=== PATIENT | male | born 1945 | race Caucasian/White ===

== ENCOUNTER → 2016-07-05 | Outpatient (REF) | payer MEDICARE, OTHER ==
[~2016-07-05] MED LIST: ASPI81TAEC PO; CEFD300CAP PO; COLA100C PO; CYCL10TA PO; GABA300C3 PO; LEVE750XR PO; LISI-538 PO; MAPA325T2 PO; NICO7DIS4 TD; NIFE30TA7 PO; NORC7.5T PO; PRAV1TAB39 PO; PROTPAK PO; RISATAB3 PO; SENN-22 PO; TAMS0.4C2 PO; VITA-130 PO
[2016-07-05 17:13] LABS: MEAN CORPUSCULAR HEMOGLOBIN 28.6 pg (27.0-33.0); MEAN CORPUSCULAR HGB CONC 31.5 g/dl (32.0-36.5); MEAN CORPUSCULAR VOLUME 90.8 fl (80.0-96.0); RED CELL DISTRIBUTION WIDTH 21.2 % (11.5-14.5); WHITE BLOOD COUNT 7.1 K/mm3 (4.0-10.0)
[2016-07-05 17:44] LABS: PERCENT SATURATION 8.2 % (19.7-37.4)
== END ==
LOC: M SFHCCLAY 13:17
PROVIDERS: ATTEND Nurse Practitioner Family
DX: D64.9 Anemia, unspecified (principal)

== ENCOUNTER 2016-07-08 14:32 | Emergency (ER) | payer MEDICARE, OTHER ==
[2016-07-08] MEDS ORDERED: SILVER NITRATE APPLICATOR As Ordered ONE (16:03)
[2016-07-08 16:59] LABS: MEAN CORPUSCULAR HEMOGLOBIN 28.1 pg (27.0-33.0); MEAN CORPUSCULAR HGB CONC 31.9 g/dl (32.0-36.5); RED CELL DISTRIBUTION WIDTH 22.8 % (11.5-14.5); WHITE BLOOD COUNT 7.1 K/mm3 (4.0-10.0)
--- NOTE | 2016-07-08 17:48 | EDDOCDS ---
Nurse's Notes [facility] Name: Gibson Goodman Age: 71 yrs Sex: Male : 1945 Arrival Date: 07/08/2016 Time: 14:32 Bed 8 Private MD: Elisha Lowery M. Diagnosis: Epistaxis Presentation: 07/08 14:47 Presenting complaint: Patient states: went to [facility] last night for nose bleed. bcj was cauterized - still bleeding when he got home. continues to bleed today - only bleeding from left nares. denies injury to nose. no vomiting. does not feel blood running down back of throat at this time. Adult Sepsis Screening: The patient does not have new or worsening altered mentation. Patient's respiratory rate is less than 22. Systolic blood pressure is greater than 100. Patient has a qSOFA score of 0- Negative Sepsis Screen. Suicide/Homicide risk assessment- the patient denies having any suicidal and/or homicidal ideations and does not present with any other emotional, behavioral or mental health complaints. Status: Patient is not a servicenow administrator developer or dependent. Transition of care: patient was not received from another setting of care. Care prior to arrival: See EMS report. 14:47 Acuity: ELLIOTT Level 3 [facility] 14:47 Method Of Arrival: Ambulance [facility] Triage Assessment: 14:58 General: Appears in no apparent distress, comfortable, Behavior is cooperative. Pain: bcj Denies pain. EENT: Nares packing intact to left nares no bleeding. Historical: - Allergies: no known allergies; - Home Meds: 1. clonazepam 0.5 mg Oral tab 1 tab 2 times per day 2. lisinopril 10 mg oral tab 1 tab once daily 3. aspirin 81 mg Oral tab 1 tab once daily 4. Colace 100 mg oral cap 1 cap once daily 5. gabapentin 300 mg Oral cap 1 cap 3 times per day 6. nifedipine 60 mg Oral TbER 1 tab once daily 7. pantoprazole 40 mg oral TbEC 1 tab once daily 8. Bacid 1 billion-250 cell-mg oral tab daily 9. Flomax 0.4 mg Oral cp24 1 cap once daily 10. Keppra 750 mg Oral tab 4 tab nightly 11. Pravachol 80 mg Oral tab 1 tab once daily 12. azithromycin 250 mg Oral tab 1 tab once daily - PMHx: CAD; Hypercholesterolemia; Hypertension; - PSHx: Cholecystectomy; R. Inguinal Hernia repair; - Social history: Smoking status: Patient uses tobacco products, heavy tobacco smoker. No barriers to communication noted, The patient speaks fluent Maltese, Speaks appropriately for age. - Family history: Not pertinent. - : The pt / caregiver states he / she is not on anticoagulants. Home medication list is obtained from the patient. - Exposure Risk Screening:: None identified. Screenin:45 Screening information is obtained from the patient. Fall risk: No risks identified. jc4 Assistance ADL's: requires no assistance with activities of daily living. Abuse/DV Screen: The patient / caregiver reports he/she is: not in a situation that causes fear, pain or injury. Nutritional screening: No deficits noted. 17:46 Advance Directives: There is no active DNR order. home support is adequate. jc4 Assessment: 16:45 General: Appears in no apparent distress, comfortable, Behavior is cooperative. Pain: j Denies pain. EENT: Nares are clear. 17:44 General: Appears in no apparent distress, comfortable, Behavior is cooperative. jc4 Neurological: Level of Consciousness is awake, alert, Oriented to person, place, time. EENT: no active bleeding noted from nares. Respiratory: Airway is patent Respiratory effort is even, unlabored, Respiratory pattern is regular, symmetrical. Derm: Skin is pink, warm & dry. Vital Signs: 14:45 BP 104 / 74; Pulse 91; Resp 20; Temp 96.9(O); Pulse Ox 95% ; Pain 4/10; ls3 14:47 Weight 97 kg; ls3 17:45 BP 121 / 72; Pulse 104; Resp 18; Temp 97.3; Pulse Ox 95% on R/A; Pain 0/10; rn1 Vitals: 14:58 Log In Time N/A - ambulance arrival. [facility] ED Course: 14:33 Patient visited by Ernestina Jose, Cleaning Crew Member. lbd 14:33 Elisha Lowery is Private Physician. lbd 14:33 Patient moved to Waiting lbd 14:34 Yo Lee, RN is Primary Nurse. lbd 14:34 Patient moved to 8 lbd 14:38 [facility] jo4 14:38 Radha Hernandez MD is Attending Physician. jo4 14:50 Triage Initiated bcj 15:00 Patient visited by Yo Lee RN. bcj 15:41 Patient visited by Radha Hernandez MD. sd1 16:04 [facility] Payment Agreement was scanned into [employer] and attached to record. zo 16:25 Patient visited by Clark Arcos PCA. jlf 16:45 No apparent distress. Resting quietly. awaiting re-evaluation by ER physician. bcj 16:45 The patient / caregiver is instructed regarding the plan of care and ED course. bcj 16:46 Patient visited by Yo Lee RN. bcj 17:16 Patient visited by Clark Arcos PCA. jlf 17:16 Elisha Lowery is Referral Physician. jo4 17:46 No IV's were initiated during this patient's visit. No procedures done that require [facility] assistance. Order Results: Lab Order: CBC; SPEC'M 07/08/16 16:23 Test: WHITE BLOOD COUNT; Value: 7.1; Range: 4.0-10.0; Units: K/mm3; Status: F Test: RED BLOOD COUNT; Value: 4.69; Range: 4.30-6.10; Units: M/mm3; Status: F Test: HEMOGLOBIN; Value: 13.2; Range: 14.0-18.0; Abnormal: Below low normal; Units: g/dl; Status: F Test: HEMATOCRIT; Value: 41.3; Range: 42.0-52.0; Abnormal: Below low normal; Units: %; Status: F Test: MEAN CORPUSCULAR VOLUME; Value: 88.0; Range: 80.0-96.0; Units: fl; Status: F Test: MEAN CORPUSCULAR HEMOGLOBIN; Value: 28.1; Range: 27.0-33.0; Units: pg; Status: F Test: MEAN CORPUSCULAR HGB CONC; Value: 31.9; Range: 32.0-36.5; Abnormal: Below low normal; Units: g/dl; Status: F Test: RED CELL DISTRIBUTION WIDTH; Value: 22.8; Range: 11.5-14.5; Abnormal: Above high normal; Units: %; Status: F Test: PLATELET COUNT, AUTOMATED; Value: 232; Range: 150-450; Units: k/mm3; Status: F Outcome: 17:16 Discharge ordered by Provider. jo4 17:46 Discharge Assessment: Patient awake, alert and oriented x 3. No cognitive and/or jc4 functional deficits noted. Patient verbalized understanding of disposition instructions. patient administered narcotics - no. The following High Risk Discharge criteria are identified: None. Discharged to home via wheelchair, with friend. Condition: stable. Discharge instructions given to patient, Instructed on discharge instructions, follow up and referral plans. Demonstrated understanding of instructions, medications, Pt was receptive of discharge instructions/ teaching. Prescriptions given X 1, prescription called into [facility] per patient request. No special radiology studies were completed. Property :Personal belongings accompany Pt. 17:47 Patient left the ED. jc4 Signatures: Radha Hernandez MD MD sd1 Ernestina Jose, Cleaning Crew Member Unit lbd Yo Lee, RN RN Marcello Cordova Jennifer, RN RN jc4 Clark Arcos, COMPLIANCE AUDITOR COMPLIANCE AUDITOR zariaf Sina Villaseñor rn1 Idalia Mauro, COMPLIANCE AUDITOR COMPLIANCE AUDITOR ls3 Christina Wan, DO TORRES jo4 LEXX
--- NOTE | 2016-07-08 17:48 | EDDOCDS ---
Physician Documentation [facility] Name: Gibson Goodman Age: 71 yrs Sex: Male : 1945 Arrival Date: 07/08/2016 Time: 14:32 Bed 8 Private MD: Elisha Lowery M. Disposition: 07/08 17:24 I have independently interviewed and examined the patient, and I agree with the sd1 investigation, diagnosis and treatment plan as documented by the Resident. Disposition: 07/08/16 17:16 Discharged to Home/Self Care. Impression: Epistaxis. - Condition is Stable. - Discharge Instructions: Nosebleed. - Prescriptions for Neosporin (jing- iker-polym) 3.5mg-400 unit- 5,000 unit/gram Topical Ointment - apply to affected area 1 application by TOPICAL route 2 times per day; 15 gram. - Medication Reconciliation, Local Pharmacy Hours form. - Follow up: Elisha Lowery; When: 1 week; Reason: Recheck today's complaints. - Problem is new. - Symptoms have improved. - Notes: You were evaluated in the emergency department for a nosebleed. Your laboratory values were essentially within normal limits. Your nose was evaluated and a small area in the left nostril was cauterized with silver nitrate. The procedure appeared to be tolerated well. Please follow-up with Elisha Lowery in 1 week. Historical: - Allergies: no known allergies; - Home Meds: 1. clonazepam 0.5 mg Oral tab 1 tab 2 times per day 2. lisinopril 10 mg oral tab 1 tab once daily 3. aspirin 81 mg Oral tab 1 tab once daily 4. Colace 100 mg oral cap 1 cap once daily 5. gabapentin 300 mg Oral cap 1 cap 3 times per day 6. nifedipine 60 mg Oral TbER 1 tab once daily 7. pantoprazole 40 mg oral TbEC 1 tab once daily 8. Bacid 1 billion-250 cell-mg oral tab daily 9. Flomax 0.4 mg Oral cp24 1 cap once daily 10. Keppra 750 mg Oral tab 4 tab nightly 11. Pravachol 80 mg Oral tab 1 tab once daily 12. azithromycin 250 mg Oral tab 1 tab once daily - PMHx: CAD; Hypercholesterolemia; Hypertension; - PSHx: Cholecystectomy; R. Inguinal Hernia repair; - Social history: Smoking status: Patient uses tobacco products, heavy tobacco smoker. No barriers to communication noted, The patient speaks fluent Estonian, Speaks appropriately for age. - Family history: Not pertinent. - : The pt / caregiver states he / she is not on anticoagulants. Home medication list is obtained from the patient. - Exposure Risk Screening:: None identified. Vital Signs: 14:45 BP 104 / 74; Pulse 91; Resp 20; Temp 96.9(O); Pulse Ox 95% ; Pain 4/10; ls3 14:47 Weight 97 kg / 213.85 lbs; ls3 17:45 BP 121 / 72; Pulse 104; Resp 18; Temp 97.3; Pulse Ox 95% on R/A; Pain 0/10; rn1 MDM: 15:40 CBC Ordered. EDMS 16:04 Financial registration complete. zo 16:04 [facility] Payment Agreement was scanned into [employer] and attached to record. zo 17:02 CBC Reviewed. sd1 Signatures: Dispatcher [employer] EDDC Radha Hernandez MD MD sd1 Yo Lee, RN RN Marcello Cordova Jennifer, RADHA RN jc4 Christina Wan DO DO jo4 The chart was reviewed and I authenticate all verbal orders and agree with the evaluation and treatment provided.Attachments: 16:04 [facility] Payment Agreement zo MTDD
--- NOTE | 2016-07-10 18:48 | EDDOCDS ---
Physician Documentation [facility] Name: Gibson Goodman Age: 71 yrs Sex: Male : 1945 Arrival Date: 07/08/2016 Time: 14:32 Bed 8 Private MD: Elisha Lowery M. Disposition: 07/08 17:24 I have independently interviewed and examined the patient, and I agree with the sd1 investigation, diagnosis and treatment plan as documented by the Resident. Disposition: 07/08/16 17:16 Discharged to Home/Self Care. Impression: Epistaxis. - Condition is Stable. - Discharge Instructions: Nosebleed. - Prescriptions for Neosporin (jing- iker-polym) 3.5mg-400 unit- 5,000 unit/gram Topical Ointment - apply to affected area 1 application by TOPICAL route 2 times per day; 15 gram. - Medication Reconciliation, Local Pharmacy Hours form. - Follow up: Elisha Lowery; When: 1 week; Reason: Recheck today's complaints. - Problem is new. - Symptoms have improved. - Notes: You were evaluated in the emergency department for a nosebleed. Your laboratory values were essentially within normal limits. Your nose was evaluated and a small area in the left nostril was cauterized with silver nitrate. The procedure appeared to be tolerated well. Please follow-up with Elisha Lowery in 1 week. Historical: - Allergies: no known allergies; - Home Meds: 1. clonazepam 0.5 mg Oral tab 1 tab 2 times per day 2. lisinopril 10 mg oral tab 1 tab once daily 3. aspirin 81 mg Oral tab 1 tab once daily 4. Colace 100 mg oral cap 1 cap once daily 5. gabapentin 300 mg Oral cap 1 cap 3 times per day 6. nifedipine 60 mg Oral TbER 1 tab once daily 7. pantoprazole 40 mg oral TbEC 1 tab once daily 8. Bacid 1 billion-250 cell-mg oral tab daily 9. Flomax 0.4 mg Oral cp24 1 cap once daily 10. Keppra 750 mg Oral tab 4 tab nightly 11. Pravachol 80 mg Oral tab 1 tab once daily 12. azithromycin 250 mg Oral tab 1 tab once daily - PMHx: CAD; Hypercholesterolemia; Hypertension; - PSHx: Cholecystectomy; R. Inguinal Hernia repair; - Social history: Smoking status: Patient uses tobacco products, heavy tobacco smoker. No barriers to communication noted, The patient speaks fluent Lithuanian, Speaks appropriately for age. - Family history: Not pertinent. - : The pt / caregiver states he / she is not on anticoagulants. Home medication list is obtained from the patient. - Exposure Risk Screening:: None identified. Vital Signs: 14:45 BP 104 / 74; Pulse 91; Resp 20; Temp 96.9(O); Pulse Ox 95% ; Pain 4/10; ls3 14:47 Weight 97 kg / 213.85 lbs; ls3 17:45 BP 121 / 72; Pulse 104; Resp 18; Temp 97.3; Pulse Ox 95% on R/A; Pain 0/10; rn1 MDM: 15:40 CBC Ordered. EDMS 16:04 Financial registration complete. zo 16:04 [facility] Payment Agreement was scanned into [employer] and attached to record. zo 17:02 CBC Reviewed. sd1 07/09 08:34 T-Sheet-- Draft Copy was scanned into [employer] and attached to record. se 12:56 T-Sheet-- Draft Copy was scanned into [employer] and attached to record. gb Signatures: Dispatcher [employer] EDRadha Russ MD MD sd1 Yo Lee, RN RN Sheree Hernandez, Juan Reg Marcello Davis Jennifer, RN RN jc4 Christina Wan DO DO jo4 Hoffert, Sarah seh The chart was reviewed and I authenticate all verbal orders and agree with the evaluation and treatment provided.Attachments: 07/08 16:04 [facility] Payment Agreement zo 12:56 T-Sheet-- Draft Copy gb Chart Complete MTDD
--- NOTE | 2016-07-10 18:48 | EDDOCDS ---
Nurse's Notes [facility] Name: Gibson Goodman Age: 71 yrs Sex: Male : 1945 Arrival Date: 07/08/2016 Time: 14:32 Bed 8 Private MD: Elisha Lowery M. Diagnosis: Epistaxis Presentation: 07/08 14:47 Presenting complaint: Patient states: went to [facility] last night for nose bleed. bcj was cauterized - still bleeding when he got home. continues to bleed today - only bleeding from left nares. denies injury to nose. no vomiting. does not feel blood running down back of throat at this time. Adult Sepsis Screening: The patient does not have new or worsening altered mentation. Patient's respiratory rate is less than 22. Systolic blood pressure is greater than 100. Patient has a qSOFA score of 0- Negative Sepsis Screen. Suicide/Homicide risk assessment- the patient denies having any suicidal and/or homicidal ideations and does not present with any other emotional, behavioral or mental health complaints. Status: Patient is not a customer service advocate or dependent. Transition of care: patient was not received from another setting of care. Care prior to arrival: See EMS report. 14:47 Acuity: ELLIOTT Level 3 [facility] 14:47 Method Of Arrival: Ambulance [facility] Triage Assessment: 14:58 General: Appears in no apparent distress, comfortable, Behavior is cooperative. Pain: bcj Denies pain. EENT: Nares packing intact to left nares no bleeding. Historical: - Allergies: no known allergies; - Home Meds: 1. clonazepam 0.5 mg Oral tab 1 tab 2 times per day 2. lisinopril 10 mg oral tab 1 tab once daily 3. aspirin 81 mg Oral tab 1 tab once daily 4. Colace 100 mg oral cap 1 cap once daily 5. gabapentin 300 mg Oral cap 1 cap 3 times per day 6. nifedipine 60 mg Oral TbER 1 tab once daily 7. pantoprazole 40 mg oral TbEC 1 tab once daily 8. Bacid 1 billion-250 cell-mg oral tab daily 9. Flomax 0.4 mg Oral cp24 1 cap once daily 10. Keppra 750 mg Oral tab 4 tab nightly 11. Pravachol 80 mg Oral tab 1 tab once daily 12. azithromycin 250 mg Oral tab 1 tab once daily - PMHx: CAD; Hypercholesterolemia; Hypertension; - PSHx: Cholecystectomy; R. Inguinal Hernia repair; - Social history: Smoking status: Patient uses tobacco products, heavy tobacco smoker. No barriers to communication noted, The patient speaks fluent Nicaraguan, Speaks appropriately for age. - Family history: Not pertinent. - : The pt / caregiver states he / she is not on anticoagulants. Home medication list is obtained from the patient. - Exposure Risk Screening:: None identified. Screenin:45 Screening information is obtained from the patient. Fall risk: No risks identified. jc4 Assistance ADL's: requires no assistance with activities of daily living. Abuse/DV Screen: The patient / caregiver reports he/she is: not in a situation that causes fear, pain or injury. Nutritional screening: No deficits noted. 17:46 Advance Directives: There is no active DNR order. home support is adequate. jc4 Assessment: 16:45 General: Appears in no apparent distress, comfortable, Behavior is cooperative. Pain: j Denies pain. EENT: Nares are clear. 17:44 General: Appears in no apparent distress, comfortable, Behavior is cooperative. jc4 Neurological: Level of Consciousness is awake, alert, Oriented to person, place, time. EENT: no active bleeding noted from nares. Respiratory: Airway is patent Respiratory effort is even, unlabored, Respiratory pattern is regular, symmetrical. Derm: Skin is pink, warm & dry. Vital Signs: 14:45 BP 104 / 74; Pulse 91; Resp 20; Temp 96.9(O); Pulse Ox 95% ; Pain 4/10; ls3 14:47 Weight 97 kg; ls3 17:45 BP 121 / 72; Pulse 104; Resp 18; Temp 97.3; Pulse Ox 95% on R/A; Pain 0/10; rn1 Vitals: 14:58 Log In Time N/A - ambulance arrival. [facility] ED Course: 14:33 Patient visited by Ernestina Jose, Banking Attorney. lbd 14:33 Elisha Lowery is Private Physician. lbd 14:33 Patient moved to Waiting lbd 14:34 Yo Lee, RN is Primary Nurse. lbd 14:34 Patient moved to 8 lbd 14:38 Christina [facility] jo4 14:38 Radha Hernandez MD is Attending Physician. jo4 14:50 Triage Initiated bcj 15:00 Patient visited by Yo Lee RN. bcj 15:41 Patient visited by Radha Hernandez MD. sd1 16:04 [facility] Payment Agreement was scanned into [employer] and attached to record. zo 16:25 Patient visited by Clark Arcos PCA. jlf 16:45 No apparent distress. Resting quietly. awaiting re-evaluation by ER physician. bcj 16:45 The patient / caregiver is instructed regarding the plan of care and ED course. bcj 16:46 Patient visited by Yo Lee RN. bcj 17:16 Patient visited by Clark Arcos PCA. jlf 17:16 Elisha Lowery is Referral Physician. jo4 17:46 No IV's were initiated during this patient's visit. No procedures done that require 4 assistance. 07/09 08:34 T-Sheet-- Draft Copy was scanned into [employer] and attached to record. [facility] 12:56 T-Sheet-- Draft Copy was scanned into [employer] and attached to record. gb Order Results: Lab Order: CBC; SPEC'M 07/08/16 16:23 Test: WHITE BLOOD COUNT; Value: 7.1; Range: 4.0-10.0; Units: K/mm3; Status: F Test: RED BLOOD COUNT; Value: 4.69; Range: 4.30-6.10; Units: M/mm3; Status: F Test: HEMOGLOBIN; Value: 13.2; Range: 14.0-18.0; Abnormal: Below low normal; Units: g/dl; Status: F Test: HEMATOCRIT; Value: 41.3; Range: 42.0-52.0; Abnormal: Below low normal; Units: %; Status: F Test: MEAN CORPUSCULAR VOLUME; Value: 88.0; Range: 80.0-96.0; Units: fl; Status: F Test: MEAN CORPUSCULAR HEMOGLOBIN; Value: 28.1; Range: 27.0-33.0; Units: pg; Status: F Test: MEAN CORPUSCULAR HGB CONC; Value: 31.9; Range: 32.0-36.5; Abnormal: Below low normal; Units: g/dl; Status: F Test: RED CELL DISTRIBUTION WIDTH; Value: 22.8; Range: 11.5-14.5; Abnormal: Above high normal; Units: %; Status: F Test: PLATELET COUNT, AUTOMATED; Value: 232; Range: 150-450; Units: k/mm3; Status: F Outcome: 07/08 17:16 Discharge ordered by Provider. jo4 17:46 Discharge Assessment: Patient awake, alert and oriented x 3. No cognitive and/or jc4 functional deficits noted. Patient verbalized understanding of disposition instructions. patient administered narcotics - no. The following High Risk Discharge criteria are identified: None. Discharged to home via wheelchair, with friend. Condition: stable. Discharge instructions given to patient, Instructed on discharge instructions, follow up and referral plans. Demonstrated understanding of instructions, medications, Pt was receptive of discharge instructions/ teaching. Prescriptions given X 1, prescription called into [facility] per patient request. No special radiology studies were completed. Property :Personal belongings accompany Pt. 17:47 Patient left the ED. jc4 Signatures: Radha Hernandez MD MD sd1 Ernestina oJse, Banking Attorney Unit lbd Yo Lee, RN RN Sheree Hernandez, Reg Reg gb Donell, Guerita Flannery, RN RN jc4 Clark Arcos, ALUMNI COORDINATOR ALUMNI COORDINATOR zariaf Sina Villaseñor rn1 Idalia Mauro, ALUMNI COORDINATOR ALUMNI COORDINATOR ls3 Christina Wan DO DO joRadha Martin Chart Complete MTDD
--- NOTE | 2016-07-10 18:48 | EDDOCDS ---
Physician Documentation [facility] Name: Gibson Goodman Age: 71 yrs Sex: Male : 1945 Arrival Date: 07/08/2016 Time: 14:32 Bed 8 Private MD: Elisha Lowery M. Disposition: 07/08 17:24 I have independently interviewed and examined the patient, and I agree with the sd1 investigation, diagnosis and treatment plan as documented by the Resident. Disposition: 07/08/16 17:16 Discharged to Home/Self Care. Impression: Epistaxis. - Condition is Stable. - Discharge Instructions: Nosebleed. - Prescriptions for Neosporin (jing- iker-polym) 3.5mg-400 unit- 5,000 unit/gram Topical Ointment - apply to affected area 1 application by TOPICAL route 2 times per day; 15 gram. - Medication Reconciliation, Local Pharmacy Hours form. - Follow up: Elisha Lowery; When: 1 week; Reason: Recheck today's complaints. - Problem is new. - Symptoms have improved. - Notes: You were evaluated in the emergency department for a nosebleed. Your laboratory values were essentially within normal limits. Your nose was evaluated and a small area in the left nostril was cauterized with silver nitrate. The procedure appeared to be tolerated well. Please follow-up with Elisha Lowery in 1 week. Historical: - Allergies: no known allergies; - Home Meds: 1. clonazepam 0.5 mg Oral tab 1 tab 2 times per day 2. lisinopril 10 mg oral tab 1 tab once daily 3. aspirin 81 mg Oral tab 1 tab once daily 4. Colace 100 mg oral cap 1 cap once daily 5. gabapentin 300 mg Oral cap 1 cap 3 times per day 6. nifedipine 60 mg Oral TbER 1 tab once daily 7. pantoprazole 40 mg oral TbEC 1 tab once daily 8. Bacid 1 billion-250 cell-mg oral tab daily 9. Flomax 0.4 mg Oral cp24 1 cap once daily 10. Keppra 750 mg Oral tab 4 tab nightly 11. Pravachol 80 mg Oral tab 1 tab once daily 12. azithromycin 250 mg Oral tab 1 tab once daily - PMHx: CAD; Hypercholesterolemia; Hypertension; - PSHx: Cholecystectomy; R. Inguinal Hernia repair; - Social history: Smoking status: Patient uses tobacco products, heavy tobacco smoker. No barriers to communication noted, The patient speaks fluent Croatian, Speaks appropriately for age. - Family history: Not pertinent. - : The pt / caregiver states he / she is not on anticoagulants. Home medication list is obtained from the patient. - Exposure Risk Screening:: None identified. Vital Signs: 14:45 BP 104 / 74; Pulse 91; Resp 20; Temp 96.9(O); Pulse Ox 95% ; Pain 4/10; ls3 14:47 Weight 97 kg / 213.85 lbs; ls3 17:45 BP 121 / 72; Pulse 104; Resp 18; Temp 97.3; Pulse Ox 95% on R/A; Pain 0/10; rn1 MDM: 15:40 CBC Ordered. EDMS 16:04 Financial registration complete. zo 16:04 [facility] Payment Agreement was scanned into [employer] and attached to record. zo 17:02 CBC Reviewed. sd1 07/09 08:34 T-Sheet-- Draft Copy was scanned into [employer] and attached to record. se 12:56 T-Sheet-- Draft Copy was scanned into [employer] and attached to record. gb Signatures: Dispatcher [employer] EDRadha Russ MD MD sd1 Yo Lee, RN RN Sheree Hernandez, Juan Reg Marcello Davis Jennifer, RN RN jc4 Christina Wan DO DO jo4 Hoffert, Sarah seh The chart was reviewed and I authenticate all verbal orders and agree with the evaluation and treatment provided.Attachments: 07/08 16:04 [facility] Payment Agreement zo 12:56 T-Sheet-- Draft Copy gb Chart Complete MTDD
== END 2016-07-08 17:47 | disposition home or self-care (01) ==
LOC: M ED 14:32
DX: R04.0 Epistaxis (principal); I25.10 Atherosclerotic heart disease of native coronary artery without angina pectoris; E78.00 Pure hypercholesterolemia, unspecified; I10 Essential (primary) hypertension; F17.210 Nicotine dependence, cigarettes, uncomplicated; Z79.82 Long term (current) use of aspirin; Z79.899 Other long term (current) drug therapy

== ENCOUNTER → 2016-10-19 | Outpatient (REF) | payer MEDICARE, OTHER ==
[~2016-10-19] MED LIST changes: -COLA100C PO; +COLA100C3 PO; +GABA-282 PO; -GABA300C3 PO
[2016-10-19 18:29] LABS: MEAN CORPUSCULAR HEMOGLOBIN 33.2 pg (27.0-33.0); MEAN CORPUSCULAR HGB CONC 33.2 g/dl (32.0-36.5); MEAN CORPUSCULAR VOLUME 100.2 fl (80.0-96.0); RED CELL DISTRIBUTION WIDTH 14.7 % (11.5-14.5); RETIC HEMOGLOBIN CONTENT CHr 34.2 PG (24-36); RETICULOCYTE % ADVIA2120 1.2 % (0.5-1.5); WHITE BLOOD COUNT 9.6 K/mm3 (4.0-10.0)
[2016-10-19 19:01] LABS: FERRITIN 65 NG/ML (26-388); PERCENT SATURATION 20.1 % (19.7-37.4); TOTAL IRON BINDING CAPACITY 303 UG/DL (250-450)
[2016-10-19 21:39] LABS: FOLATE > 24.0 NG/ML (>5.4)
== END ==
LOC: M SFHCCLAY 10:49
PROVIDERS: ATTEND Nurse Practitioner Family
DX: D64.9 Anemia, unspecified (principal)

== ENCOUNTER → 2016-10-26 | Outpatient (CLI) | payer MEDICARE, OTHER ==
--- NOTE | 2016-10-26 15:54 | REP ---
LEFT RIBS, FOUR VIEWS: HISTORY: Chest pain. There is no acute fracture or bone lesion. There is no pneumothorax. IMPRESSION: There is no acute fracture or bone lesion.
== END ==
LOC: M CLY 14:39
PROVIDERS: ATTEND Family Medicine
DX: R07.1 Chest pain on breathing (principal)

== ENCOUNTER → 2017-05-17 | Outpatient (CLI) | payer MEDICARE, OTHER ==
[~2017-05-17] MED LIST changes: +ASPI81TA24 PO; +CLON0.5T PO; -COLA100C3 PO; +COLA100C5 PO; +FLOM5CAP PO; +FURO40TA2 PO; +HYDR-3719 PO; +LISI10TA4 PO; -NORC7.5T PO; +NORC7.5T35 PO; +PRAV80TA2 PO; +PROAAER10 INH; +PROT1TAB2 PO; -VITA-130 PO; +VITA500T PO; +VITMTA PO
--- NOTE | 2017-05-17 16:35 | REP ---
Clinical: Nontraumatic knee pain extending to the right upper extremity. Technique: AP, lateral, flexion/extension, swimmer's, open-mouth and oblique views of the cervical spine. Findings: Advanced osteopenia and multilevel degenerative disc osteophyte complexes noted primarily involving the C3-4 through C7-T1 levels. No acute fracture or acute subluxation is appreciated. Subtle 2 mm of chronic retrolisthesis at the C3-4 and C5-6 levels remain stable on flexion and extension views. Spinous processes are intact. Prevertebral soft tissues within normal limits. Open mouth view demonstrates normal C1-C2 articulation and odontoid process. Oblique views demonstrate hypertrophic changes narrowing the facet joints (right greater than left). Impression: Advanced multilevel osteopenia and degenerative changes. Signed by Didier Dubose MD 05/17/2017 04:27 P
== END ==
LOC: M CLY 15:35
PROVIDERS: ATTEND Nurse Practitioner Family
DX: M85.841 Other specified disorders of bone density and structure, right hand (principal); M19.041 Primary osteoarthritis, right hand
CPT/HCPCS: 72050; G0463

== ENCOUNTER → 2017-06-14 | Outpatient (REF) | payer MEDICARE, OTHER ==
[2017-06-15 12:39] LABS: BASO # 0.1 10^3/uL (0.0-0.2); BASO % 0.8 % (0.0-1.0); EOS # 0.2 10^3/uL (0.0-0.50); EOS % 2.5 % (0.0-3.0); IMMATURE GRANULOCYTE % 0.1 % (0-0); LYMPH # 2.9 10^3/uL (1.5-4.5); LYMPH % 37.8 % (24.0-44.0); MEAN CORPUSCULAR HGB CONC 33.6 g/dl (32.0-36.5); MEAN CORPUSCULAR VOLUME 104.3 fl (80.0-96.0); MONO # 0.6 10^3/uL (0.0-0.8); MONO % 7.9 % (0.0-5.0); NEUTROPHILS # 3.9 10^3/uL (1.8-7.7); NEUTROPHILS % 50.9 % (36.0-66.0); RED CELL DISTRIBUTION WIDTH 13.6 % (11.5-14.5); WHITE BLOOD COUNT 7.7 10^3/uL (4.0-10.0)
[2017-06-15 13:00] LABS: PLATELET COUNT, AUTOMATED 227 10^3/uL (150-450); PLT CLUMPS? POS FLAG; POS COUNT POS FLAG
[2017-06-15 13:05] LABS: ALBUMIN/GLOBULIN RATIO 0.49 (1.00-1.93); ALKALINE PHOSPHATASE 199 U/L (45-117); ALT/SGPT 30 U/L (12-78); ANION GAP 7 MEQ/L (8-16); AST/SGOT 44 U/L (7-37); BILIRUBIN,TOTAL 0.6 MG/DL (0.2-1.0); BLOOD UREA NITROGEN 4 MG/DL (7-18); CALCIUM LEVEL 8.2 MG/DL (8.8-10.2); CARBON DIOXIDE LEVEL 31 MEQ/L (21-32); CHLORIDE LEVEL 104 MEQ/L (98-107); GLOMERULAR FILTRATION RATE > 60.0 (>42); GLUCOSE, FASTING 88 MG/DL (83-110); POTASSIUM SERUM 3.9 MEQ/L (3.5-5.1); SODIUM LEVEL 142 MEQ/L (136-145); TOTAL PROTEIN 6.1 GM/DL (6.4-8.2)
== END ==
LOC: M SFHCCLAY 14:51
PROVIDERS: ATTEND Nurse Practitioner Family
DX: I10 Essential (primary) hypertension (principal)

== ENCOUNTER → 2017-07-12 | Outpatient (CLI) | payer MEDICARE, OTHER | LOC: M CLY 15:47 | DX: C34.90 Malignant neoplasm of unspecified part of unspecified bronchus or lung (principal); R05 Cough | CPT/HCPCS: 71046; G0463 ==

== ENCOUNTER → 2017-08-22 | Outpatient (REF) | payer MEDICARE, OTHER ==
[2017-08-22 17:25] LABS: FOLATE > 24.0 NG/ML (>5.4); TOTAL 25(OH) VITAMIN D 39.8 NG/ML (30.0-100.0); VITAMIN B12 LEVEL 877 PG/ML (247-911)
[2017-08-22 17:26] LABS: ALBUMIN 2.1 GM/DL (3.2-5.2); ALBUMIN/GLOBULIN RATIO 0.49 (1.00-1.93); ALKALINE PHOSPHATASE 210 U/L (45-117); ALT/SGPT 25 U/L (12-78); ANION GAP 10 MEQ/L (8-16); AST/SGOT 44 U/L (7-37); BILIRUBIN,TOTAL 0.6 MG/DL (0.2-1.0); BLOOD UREA NITROGEN 6 MG/DL (7-18); CARBON DIOXIDE LEVEL 32 MEQ/L (21-32); CHLORIDE LEVEL 96 MEQ/L (98-107); CHOLESTEROL LEVEL 93 MG/DL (<200); CHOLESTEROL RISK RATIO 2.384 (<5); CREATININE FOR GFR 0.74 MG/DL (0.70-1.30); FERRITIN 364 NG/ML (26-388); GLOMERULAR FILTRATION RATE > 60.0 (>42); GLUCOSE, FASTING 85 MG/DL (70-100); HDL CHOLESTEROL 39 MG/DL (>40); IRON (FE) 44 UG/DL (65-175); LDL CHOLESTEROL 24.2 MG/DL (<100); NON-HDL-C 54 MG/DL; PERCENT SATURATION 29.1 % (19.7-50.0); POTASSIUM SERUM 3.1 MEQ/L (3.5-5.1); SODIUM LEVEL 138 MEQ/L (136-145); TOTAL IRON BINDING CAPACITY 151 UG/DL (250-450); TOTAL PROTEIN 6.4 GM/DL (6.4-8.2); TRIGLYCERIDES LEVEL 149 MG/DL (<150)
[2017-08-22 19:08] LABS: HEMATOCRIT 42.3 % (42.0-52.0); HEMOGLOBIN 14.5 g/dl (14.0-18.0); MEAN CORPUSCULAR HEMOGLOBIN 35.4 pg (27.0-33.0); MEAN CORPUSCULAR HGB CONC 34.3 g/dl (32.0-36.5); MEAN CORPUSCULAR VOLUME 103.2 fl (80.0-96.0); PLATELET COUNT, AUTOMATED 301 10^3/uL (150-450); RED CELL DISTRIBUTION WIDTH 12.2 % (11.5-14.5); RETIC HEMOGLOBIN EQUIVALENT 40.6 pg (24-36); RETICULOCYTE % 1.4 % (0.5-1.5); WHITE BLOOD COUNT 9.2 10^3/uL (4.0-10.0)
[2017-08-23 11:42] LABS: APPEARANCE, URINE CLEAR (CLEAR); BACTERIA, URINE AUTO NEGATIVE (NEGATIVE); BILIRUBIN, URINE AUTO NEGATIVE (NEGATIVE); BLOOD, URINE BLOOD NEGATIVE (NEGATIVE); COLOR, URINE YELLOW (YELLOW); GLUCOSE, URINE (UA) AUTO NEGATIVE (NEGATIVE); KETONE, URINE AUTO NEGATIVE (NEGATIVE); LEUKOCYTE ESTERASE, URINE AUTO NEGATIVE (NEGATIVE); NITRITE, URINE AUTO NEGATIVE (NEGATIVE); PROTEIN, URINE AUTO NEGATIVE (NEGATIVE); RBC, URINE AUTO 0 /HPF (0-3); SPECIFIC GRAVITY URINE AUTO 1.004 (1.002-1.035); SQUAMOUS EPITHELIAL CELL UR AU 0 /HPF (0-6); UROBILINOGEN, URINE AUTO 0.2 mg/dL (0.0-2.0); WBC, URINE AUTO 0 /HPF (0-3)
== END ==
LOC: M SFHCCLAY 13:14
DX: D64.9 Anemia, unspecified (principal); I10 Essential (primary) hypertension; E78.4 Other hyperlipidemia; Z13.21 Encounter for screening for nutritional disorder; Z79.899 Other long term (current) drug therapy; Z79.82 Long term (current) use of aspirin
CPT/HCPCS: 82746

== ENCOUNTER 2017-09-04 10:51 | Day surgery (SDC) | payer MEDICARE, OTHER ==
[2017-09-04] MEDS: NS 1,000 ML IV (11:00)
[2017-09-04] MEDS ORDERED: PROPOFOL 200 MG/20 ML VIAL As Ordered (12:00)
[2017-09-04] MEDS ORDERED: fentaNYL 100 MCG/2 ML INJECTION (J3010) As Ordered (12:00)
[2017-09-04] MEDS ORDERED: LIDOCAINE 2% INJ 100 MG/5 ML SDV (FOR ANES.) As Ordered (12:00)
== END 2017-09-04 13:05 | disposition home or self-care (01) ==
LOC: M SDC 10:51
DX: R13.10 Dysphagia, unspecified (principal); K22.4 Dyskinesia of esophagus; K22.8 Other specified diseases of esophagus; K29.70 Gastritis, unspecified, without bleeding; K57.10 Diverticulosis of small intestine without perforation or abscess without bleeding; R94.31 Abnormal electrocardiogram [ECG] [EKG]; E78.00 Pure hypercholesterolemia, unspecified; D64.9 Anemia, unspecified; G62.9 Polyneuropathy, unspecified; R29.898 Other symptoms and signs involving the musculoskeletal system; F41.9 Anxiety disorder, unspecified; F32.9 Major depressive disorder, single episode, unspecified; N40.0 Benign prostatic hyperplasia without lower urinary tract symptoms; I73.9 Peripheral vascular disease, unspecified; G56.21 Lesion of ulnar nerve, right upper limb; Z79.899 Other long term (current) drug therapy; Z79.82 Long term (current) use of aspirin; Z86.69 Personal history of other diseases of the nervous system and sense organs; Z72.0 Tobacco use; Z89.611 Acquired absence of right leg above knee
CPT/HCPCS: 43239

== ENCOUNTER → 2017-10-27 | Outpatient (CLI) | payer MEDICARE, OTHER | LOC: M CLY 15:38 | DX: R91.8 Other nonspecific abnormal finding of lung field (principal); M47.812 Spondylosis without myelopathy or radiculopathy, cervical region; M19.041 Primary osteoarthritis, right hand; R07.81 Pleurodynia; M21.941 Unspecified acquired deformity of hand, right hand | CPT/HCPCS: 71111; G0463 ==

== ENCOUNTER → 2017-11-27 | Outpatient (CLI) | payer MEDICARE, OTHER | LOC: M RAD 15:30 | DX: R91.8 Other nonspecific abnormal finding of lung field (principal) | CPT/HCPCS: 71250 ==